=== PATIENT | male | born 1955 ===

== ENCOUNTER 2024-02-24 08:00 | Inpatient (IN) | payer OTHER ==
[~2024-02-24] VITALS: Ht 167.6 cm; Wt 65.8 kg
[2024-02-24] MEDS ORDERED: CLARITIN10 M1 PO (09:23)
[2024-02-24 09:26] VITALS: BP 136/81
[2024-02-24 09:27] LABS: HEMATOCRIT 42.6 % (39.0-48.0); HEMOGLOBIN 14.6 g/dL (13-16.00); MEAN CELL VOLUME 89.1 fL (80.0-100.00); MEAN CORPUSCULAR HEMOGLOBIN 30.6 pg (27.00-32.0); MEAN CORPUSCULAR HGB CONC 34.3 g/dl (32.0-36.0); PLATELET COUNT 191 K/uL (150-450); RED BLOOD COUNT 4.78 M/uL (4.00-6.00); RED CELL DISTRIBUTION WIDTH 13.2 % (11.5-14.5)
[2024-02-24 09:37] LABS: URINE APPEARANCE Clear; URINE BILIRRUBIN Negative (NEGATIVE); URINE BLOOD Negative; URINE COLOR Yellow; URINE GLUCOSE Negative (NEGATIVE); URINE KETONE Negative (NEGATIVE); URINE LEUKOCYTE Negative; URINE NITRATE Negative; URINE PROTEIN Negative (NEGATIVE); URINE UROBILINOGEN 0.2 E.U./dl
[2024-02-24 09:38] LABS: URINE BACTERIA 12.5 uL (0.0-1933); URINE EPITHELIAL CELLS 1.5 uL (0.0-38.8); URINE RBC 6.5 uL (0.0-20.8); URINE WBC 7.3 uL (0.0-23.2)
[2024-02-24 09:43] LABS: URINE CAST 0.45 uL (0.0-1.40)
[2024-02-24 10:17] LABS: PARTIAL THROMBOPLASTIN TIME 27.3 SECONDS (22.0-34.0); PROTHROMBIN TIME 10.9 SECONDS (9.0-11.5)
[2024-02-24 10:24] LABS: CALCIUM 8.9 mg/dL (8.5-10.1); CREATININE SERUM 0.7 mg/dL (0.70-1.30); GFR 112.48; POTASSIUM 4.25 mEq/L (3.5-5.1)
[2024-03-03] MEDS ORDERED: BUPIVACAINE HCL/MPF 0.5% 30ML VIAL ONE (06:55)
[2024-03-03] MEDS ORDERED: SURGIFLO APPLICATOR 1 EACH APPL TOP ONE (06:56)
[2024-03-03] MEDS ORDERED: HEMOSTATIC MATRIX 1 KIT KIT TOP ONE (06:56)
[2024-03-03] MEDS ORDERED: ENOXAPARIN SODIUM 40 MG/0.4 ML SYRINGE SUBCUTANEO ONE (07:10)
[2024-03-03] MEDS ORDERED: CEFAZOLIN SODIUM 1,000 MG VIAL ONE ×2 (07:10→12:04)
[2024-03-03] MEDS ORDERED: DOXAZOSIN MESYLA8 MG (07:44)
[2024-03-03] MEDS ORDERED: FINASTERIDE5 MG (07:44)
[2024-03-03] MEDS ORDERED: SUGAMMADEX SODIUM 200 MG/2 ML VIAL IV ONE (09:51)
[2024-03-03] MEDS ORDERED: ONDANSETRON HCL 2 MG/ML VIAL IV PRN (10:45)
[2024-03-03] MEDS ORDERED: RINGERS SOLUTION,LACTATED 1,000 ML IV SCH (10:45)
[2024-03-03] MEDS ORDERED: OxyCODONE HCL/APAP UD (PERCOCET) PO PRN (10:45)
[2024-03-03] MEDS ORDERED: MORPHINE SULFATE 4 MG/ML VIAL IV ONE ×2 (11:50→12:25)
[2024-03-03] MEDS ORDERED: CEFAZOLIN SODIUM 1,000 MG VIAL IV SCH (12:00)
[2024-03-03 13:35] VITALS: BP 124/79; O2SAT 95
[2024-03-03 16:27] VITALS: BP 118/72; O2SAT 98
[2024-03-03] MEDS ORDERED: POLYETHYLENE GLYCOL 3350 17 GM BLIST.PACK PO SCH (17:00)
[2024-03-03] MEDS ORDERED: GABAPENTIN 300 MG CAPSULE PO SCH (17:00)
[2024-03-03] MEDS ORDERED: KETOROLAC TROMETHAMINE 30 MG VIAL IV SCH (17:00)
[2024-03-03] MEDS ORDERED: FAMOTIDINE/PF 20 MG/2 ML VIAL IV SCH (21:00)
[2024-03-04 00:46] VITALS: BP 106/73; O2SAT 96
[2024-03-04 07:45] LABS: HEMATOCRIT 36.5 % (39.0-48.0); HEMOGLOBIN 12.7 g/dL (13-16.00); MEAN CELL VOLUME 89.1 fL (80.0-100.00); MEAN CORPUSCULAR HGB CONC 34.8 g/dl (32.0-36.0); PLATELET COUNT 169 K/uL (150-450); RED CELL DISTRIBUTION WIDTH 13.3 % (11.5-14.5)
[2024-03-04 08:00] VITALS: BP 129/79; O2SAT 97
[2024-03-04 08:23] LABS: ALBUMIN 3.1 gm/dL (3.4-5.0); CREATININE SERUM 0.99 mg/dL (0.70-1.30); GFR 75.4; PHOSPHOROUS 2.9 mg/dL (2.5-4.9); POTASSIUM 4.03 mEq/L (3.5-5.1)
[2024-03-04] MEDS ORDERED: ENOXAPARIN SODIUM 40 MG/0.4 ML SYRINGE SUBCUTANEO SCH (09:00)
== END 2024-03-04 13:54 | disposition home or self-care (01) | DRG 718 ==
LOC: O/R 03-03 04:37 → SURH 03-03 08:00
PROVIDERS: ADMIT Urology; ATTEND Urology
PROC: 8E0W4CZ Robotic Assisted Procedure of Trunk Region, Percutaneous Endoscopic Approach (ICD-10-PCS; 2024-03-03)
PROC: 0VB04ZZ Excision of Prostate, Percutaneous Endoscopic Approach (ICD-10-PCS; principal; 2024-03-03 13:15)
DX: N40.1 Benign prostatic hyperplasia with lower urinary tract symptoms (principal); Z20.822 Contact with and (suspected) exposure to COVID-19
CPT/HCPCS: 55867; S2900